=== PATIENT | male | born 1955 | race Caucasian/White ===

== ENCOUNTER 2020-11-11 12:10 | Emergency (ER) | payer OTHER, MEDICAID ==
[2020-11-11] MEDS ORDERED: Diphtheria,Pertussis(Acell),Tetanus Vaccine 0.5 ML Syringe IM ONE (12:15)
[2020-11-11] MEDS ORDERED: Bacitracin Oint 1 GM U/D Packet TOP ONE ×2 (12:16→13:46)
[2020-11-11] MEDS ORDERED: Lidocaine 2% Viscous Solution 100 ML Bottle MUCMEM ONE (12:16)
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
[2020-11-11] MEDS ORDERED: Ketorolac 30 MG/ML SDV IVPUSH ONE (12:27)
[2020-11-11] MEDS ORDERED: Lidocaine 2% Viscous Solution 15 ML Cup MUCMEM ONE (12:30)
--- NOTE | 2020-11-13 10:13 | CR ---
CHEST: Portable 11/11/2020 at 12:29 PM CLINICAL HISTORY:Lateral chest wall pain, trauma COMPARISON:None FINDINGS: The heart size, pulmonary vascularity and hilar structures are normal. No infiltrate effusion or pneumothorax is seen. There are deformities of the left second and third ribs. Margins are smooth. There is a slight cortical step-off the left fourth rib posteriorly. This could represent an acute fracture. IMPRESSION: No acute cardiopulmonary process. Deformity of the left second through through fourth ribs. The these may represent previous rib fractures. Chronology is uncertain. If there is clinical symptomatology, a dedicated rib study is recommended
== END 2020-11-11 14:20 | disposition home or self-care (01) ==
LOC: JP.ED 12:10
DX: S22.32XA Fracture of one rib, left side, initial encounter for closed fracture (principal); T24.221A Burn of second degree of right knee, initial encounter; S50.812A Abrasion of left forearm, initial encounter; S70.312A Abrasion, left thigh, initial encounter; S80.812A Abrasion, left lower leg, initial encounter; S40.212A Abrasion of left shoulder, initial encounter; Z23 Encounter for immunization; V20.4XXA Motorcycle driver injured in collision with pedestrian or animal in traffic accident, initial encounter; Y92.410 Unspecified street and highway as the place of occurrence of the external cause
CPT/HCPCS: 71045; 90471; 90715; 96374; 99284; A9270; J1885